=== PATIENT | male | born 1945 | race Caucasian/White ===

== ENCOUNTER → 2020-11-27 19:55 | Outpatient (CLI) | payer MEDICARE, SELFPAY | PROVIDERS: Visit Provider Nurse Practitioner Family | DX: Z20.822 Contact with and (suspected) exposure to COVID-19 (principal) | CPT/HCPCS: C9803; U0003; U0005 ==

== ENCOUNTER 2024-11-17 08:51 | Outpatient (CLI) | payer MEDICARE, SELFPAY ==
--- OUTSIDE RECORDS SUMMARY | 2023-06-02 05:30 | XMS_ITS ---
Author Organization [facility] Address [address] [place] [id number] Care Team Providers Care Primer Inspector Name Role Phone Melissa Obrien Primary Care Provider [phone] Allergies Allergen (clinical drug ingredient) Drug/Non Drug Allergy documented on EMR Reaction Allergy Type Onset Date Status Substance with sulfonamide structure and antibacterial mechanism of action (substance) Sulfa Antibiotics hives Drug Allergy Active Results Component Value Reference Range Notes P-Comprehensive Metabolic Pa tim (CMP) Reviewed date:06/08/2023 09:31:53 PM Interpretation: Performing Lab: Notes/Report: Test performed by [facility] [address] [place] [address] , [address], [place] [address] Nile Thornton MD, Replenishment Associate CLIA: [id number] Sodium 140 135-145 mEq/L Potassium 4.4 3.5-5.3 mEq/L Chloride 104 97-108 mEq/L CO2 24 22-32 mEq/L Glucose 100 65-99 mg/dL BUN 22 8-23 mg/dL Creatinine 0.87 0.70-1.30 mg/dL Calcium 9.9 8.6-10.4 mg/dL eGFR by Creatinine 90 >59 mL/min/1.73m2 Protein 7.3 6.0-8.3 g/dL Albumin 4.6 3.5-5.3 g/dL Alkaline Phosphatase 69 40-129 IU/L ALT (SGPT) 27 <5-55 IU/L AST (SGOT) 31 <5-46 IU/L Bilirubin, Total 0.6 <0.2-1.2 mg/dL A/G Ratio 1.7 1.1-2.5 mg/dL P-Lipid Panel Reviewed date:06/08/2023 09:31:53 PM Interpretation: Performing Lab: Notes/Report: Test performed by [facility] [facility] [address], [place] [address] Nile Thornton MD, Replenishment Associate CLIA: [id number] Cholesterol 216 <200 mg/dL Triglycerides 92 <150 mg/dL HDL Cholesterol 51 >39 mg/dL Cholesterol / HDL Ratio 4.24 0.00-4.99 Ratio Non-HDL Cholesterol 165 <130 mg/dL LDL Cholesterol (Calculation) 147 <130 mg/dL LDL Cholesterol Levels* Less than 100 mg/dL Optimal 100 to 129 mg/dL Near Optimal/ Above Optimal 130 to 159 mg/dL Borderline High 160 to 189 mg/dL High 190 mg/dL and above Very High * Categories as recommended by the 2004 ATPIII guidelines LDL/HDL Ratio 2.9 <3.3 Ratio LDL Cholesterol Patient History Test Date: 06/02/2023 LDL Results: 147 Units: mg/dL % Change: - P-PSA Reviewed date:06/08/2023 09:32:15 PM Interpretation:6.29 Performing Lab: Notes/Report: Test performed by [facility] [address] [place] [address] Nile Thornton MD, Replenishment Associate CLIA: [id number] PSA 6.29 <4.00 ng/mL Please note this is an ultrasensitive PSA assay with a lower limit of detection of 0.014 ng/mL. This test is performed by the Jono ECLIA methodology. Values obtained with different assay methods or kits cannot be directly compared. REASON FOR VISIT post nasal drainage Medications Medication SIG (Take, Route, Frequency, Duration) Notes Start Date End Date Status FLUoxetine HCl 20 MG 1 tablet Orally Onc e a day; Duration: 30 day(s) 06/12/2023 Active Lisinopril-hydroCHLOROthia zide 20-25 MG 1 tablet Orally Once a day; Duration: 90 days Active Aspirin 325 MG 1 tab(s) orally once a day Active Turmeric 500MG ONCE DAILY Acti ve Problems Problem Type SNOMED Code ICD Code Onset Dates Problem Status W/U Status Risk Notes Problem Depression (382311229) Depression (F32.9) Active confirmed Problem Elevated PSA (651212269) Elevated PSA (R97.20) Active confirmed Vital Signs Weight 273.8 lbs 06/02/2023 Blood pressure systolic 142 mm Hg 06/02/19 24 Blood pressure diastolic 110 mm Hg 024 Heart Rate 96 /min 06/02/2023 Height 74 in 06/02/2023 BMI 35.15 kg/m2 06/02/2023 Encounters [facility]counter [facility] Date [facility] [address] [phone] 06/02/2023 Melissa Obrien HTN (hypertension) I 10 ; Dyslipidemia E78.5 ; Elevated PSA R97.2 ; Depression F32.9 ; Elevated PSA R97.20 and Rhinitis J31.0 Assessments Encounter Date Diagnosis (ICD Code) Assessment Notes Treatment Notes Treatment Clinical Notes Section Notes 06/02/2023 HTN (hypertension) (ICD-10 - I10) 06/02/2023 Dyslipidemia (ICD-10 - E78.5) Reinforced diet. Recheck labs. 06/02/2023 Elevated PSA (ICD-10 - R97.2) 06/02/2023 Depression (ICD-10 - F32.9) 06/02/2023 Elevated PSA (ICD-10 - R97.20) 06/02/2023 Rhinitis (ICD-10 - J31.0) Recommend OTC antihistamine of choice Plan Of Treatment Medication Medication Name Sig Start Date Stop Date Notes FLUoxetine HCl 20 MG 1 tablet Orally Onc e a day; Duration: 30 day(s) 06/12/2023 Lisinopril-hydroCHLOROthiazi de 20-25 MG 1 tablet Orally Once a day; Duration: 90 days Treatment Notes Assessment Notes Dyslipidemia Reinforced diet. Rec heck labs. Rhinitis Recommend OTC antihi stamine of choice Next Appt Details Follow Up: 6 Months, Reason: Progress Notes * PEACE RUSSELLDOB:1945 ( 79 yo M)Acc No.[id number]:06/02/2023 Progress Notes Patient: PEACE BARBOZA Provider: Melissa Obrien M.D. :1945 A ge:77 Y S ex:Male Date:06/02/2023 Address:[address] [place] [address] [place], [id number] Subjective: * Chief Complaints: * 1 . Post nasal drainage. * HPI: E NT/respiratory: He presents with complaints of chronic nasal congestion postnasal drainage that has been present throughout the winter months. No associated fever. Drainage is mostly clear in color. He tried taking Mucinex with no improvement. He has had some associated cough. No shortness of breath. No pleuritic chest pain. E ndocrinology: Maintenance P t is fasting today and would like to have labs done while in the office to check his cholesterol as well as his PSA. P sychology: He has been under increased stress over the past several months. He has an adult daughter living at home which has been somewhat disruptive to the usual routine. He admits to being grouchy with his family and finds himself withdrawing to his room to be alone and away from the family. M kari Reproductive: He is also here to follow-up on elevated PSA. He still has nocturia at least once per night but is not bothersome. He has a history of elevated PSA in the past and had a prostate biopsy greater than 10 years ago which was negative. C ardiology: He has had some intermittent elevated blood pressure readings at home. Denies : Chest Pain. D enies : Short of Breath. D enies : Leg Edema. * ROS: D ERMATOLOGY: no R camacho. n o H diana. G ASTROENTEROLOGY: no N ausea. n o V omiting. U ROLOGY: no D ifficulty urinating. n o B lood in urine. * Medical History: H ypertension, Enlarged Prostate, Elevated PSA with benign biopsy, Presbycusis - wears hearing aids, HLP, OA, Peripheral neuropathy, Hydrocele. * Surgical History: L T Inguinal Hernia Repair 2008, Tonsillectomy , Colonoscopy, 2017 normal , Prostate biopsy - benign x 2/ [place] , LT Cataract Removal 04/2019. * Family History: F ather: 73 yrs, massive heart attack. M other: 94 yrs. 1 daughter(s) . . * Social History: C URRENT TOBACCO USE S moking Status: Patient does smoke, packs per day: 0, number of cigarettes per day: 3, Since age of: 20, Smoking preference: cigars. C affeine: yes, coffee. 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 Home smoke detector use: yes. Occupation: Audiovisual design and installation. Alcohol: occasional. * Medications: T aking Turmeric 500MG ONCE DAILY , Taking Aspirin 325 MG Tablet 1 tab(s) orally once a day , Taking Lisinopril-hydroCHLOROthiazide 20-12.5 MG Tablet 1 tablet Orally Once a day , Medication List reviewed and reconciled with the patient * Allergies: S ulfa Antibiotics: hives. Objective: * Vitals: W t:273.8, Temp:97.8, BP:142/110, HR:96, O2 Sat:98% on RA, Nurse:NIA, Ht: 74, Repeat BP:134/100, BMI:35.15. * Examination: E NT/Respiratory: General Appearance: N AD. Hard of hearing. E ars:?Bilateral hearing aids. Canals with small amount of wax. TMs are unremarkable..?Nose : mild congestion. S inuses : non tender bilaterally. O ral cavity : no erythema or exudate seen on pharynx. H eart : R RR, normal S1 S2, no murmurs. L ungs: c lear to auscultation bilaterally. E xtremities : no edema. Assessment: * Assessment: 1. H TN (hypertension) - I10 (Primary) 2 . D yslipidemia - E78.5 3 . E levated PSA - R97.2 4 . D epression - F32.9 5 .?Elevated PSA - R97.20 6 . R hinitis - J31.0 Plan: * Treatment: Value Reference Range A /G Ratio 1.7 1.1-2.5 - mg/dL * A lbumin 4.6 3.5-5.3 - g/dL * A lkaline Phosphatase 69 40-129 - IU/L * A LT (SGPT) 27 <5-55 - IU/L * A ST (SGOT) 31 <5-46 - IU/L * B ilirubin, Total 0.6 <0.2-1.2 - mg/dL * B UN 22 8-23 - mg/dL * C alcium 9.9 8.6-10.4 - mg/dL * C hloride 104 97-108 - mEq/L * C O2 24 22-32 - mEq/L * C reatinine 0.87 0.70-1.30 - mg/dL * G lucose 100 H 65-99 - mg/dL * P otassium 4.4 3.5-5.3 - mEq/L * S odium 140 135-145 - mEq/L * P rotein 7.3 6.0-8.3 - g/dL * e GFR by Creatinine 90 >59 - mL/min/1.73m2 * Melissa Obrien 06/08/2023 9 :31:24 PM >See phone encounter 2.?Dyslipidemia?LAB: P-Lipid Panel (Collection Date & Time - 06/02/2023 09:15 AM)* Value Reference Range C holesterol / HDL Ratio 4.24 0.00-4.99 - Ratio * C holesterol 216 H <200 - mg/dL * H DL Cholesterol 51 >39 - mg/dL * L DL Cholesterol (Calculation) 147 H <130 - mg/d L * L DL/HDL Ratio 2.9 <3.3 - Ratio * N on-HDL Cholesterol 165 H <130 - mg/dL * T riglycerides 92 <150 - mg/dL * Melissa Obrien 06/08/2023 9 :31:24 PM >See phone encounter Notes: Reinforced diet. Recheck labs.??3.?Depression? Start FLUoxetine HCl Tablet, 20 MG, 1 tablet, Orally, Once a day, 30 day(s), 30, Refills 5.? 4.?Elevated PSA?LAB: P-PSA (Collection Date & Time - 06/02/2023 09:15 AM)?6.29* Value Reference Range P SA 6.29 H <4.00 - ng/mL * Melissa Obrien 06/08/2023 9 :32:07 PM > See phone encounter 5.?Rhinitis? Notes: Recommend OTC antihistamine of choice?? * Procedure Codes: 9 4760 PULSE OX, G2211 Complex e/m visit add on * Follow Up: 6 Months * Images: Billing Information: * Visit Code: 10998 Office Visit, Est Pt., Level 4. * Procedure Codes: 32041 PULSE OX. G2211 Complex e/m visit add on. * Electronic signature of Melissa Obrien MD on 11/17/2024 at 08:55 AM EDT Sign off status: Pending * Provider: Melissa Obrien M.D. Date: 0 06/02/2023 Generated for Deshauni ng/Fatomig/eTransmitting on: 0 11/17/2024 08:55 AM EDT History and Physical Notes * HPI (History of Present Illness) Category Sub-Category Detail Notes Category Not es Endocrinology Maintenance Pt is fasting to day and would like to have labs done while in the office to check his cholesterol as well as his PSA Cardiology Short of Breath Chest Pain Leg Edema Examination Category Sub-Category Detail Notes Category Not es ENT/Respiratory Oral cavity : no erythema or exudate s een on pharynx Sinuses : non tender bilateral ly Ears: Bilateral hearing ai ds. Canals with small amount of wax. TMs are unremarkable. Heart : RRR, normal S1 S2, n o murmurs Lungs: clear to auscultatio n bilaterally Extremities : no edema General Appearance: NAD. Hard of hearing Nose : mild congestion
--- OUTSIDE RECORDS SUMMARY | 2024-01-21 06:00 | XMS_ITS ---
Author Organization [facility] Address [address] [facility] [address] [place] [id number] Care Team Providers Care Consumer Loan Specialist Name Role Phone Melissa Obrien Primary Care Provider [phone] Allergies Allergen (clinical drug ingredient) Drug/Non Drug Allergy documented on EMR Reaction Allergy Type Onset Date Status Substance with sulfonamide structure and antibacterial mechanism of action (substance) Sulfa Antibiotics hives Drug Allergy Active Results Component Value Reference Range Notes Glycohemoglobin A1c (in hous e) Reviewed date:01/25/2024 09:41:33 AM Interpretation:5.7% Performing Lab: Notes/Report: 5.7% glycohemoglobin 5.7% 5 - 6.5 % P-Comprehensive Metabolic Pa tim (CMP) Reviewed date:01/25/2024 09:41:33 AM Interpretation: Performing Lab: Notes/Report: Test performed by [employer] [address] [place] [address] , [address], [place] [address] Nile Thornton MD, Lead Refinery Supervisor CLIA: [id number] Sodium 139 135-145 mmol/L Potassium 4.9 3.5-5.3 mmol/L Chloride 100 97-108 mmol/L CO2 27 22-32 mmol/L Glucose 96 65-99 mg/dL BUN 28 8-23 mg/dL Creatinine 1.02 0.70-1.30 mg/dL Calcium 10.1 8.6-10.4 mg/dL eGFR by Creatinine 76 >59 mL/min/1.73m2 Protein 7.6 6.0-8.3 g/dL Albumin 4.4 3.5-5.3 g/dL Alkaline Phosphatase 77 40-129 IU/L ALT (SGPT) 22 <5-55 IU/L AST (SGOT) 25 <5-46 IU/L Bilirubin, Total 0.6 <0.2-1.2 mg/dL A/G Ratio 1.4 1.1-2.5 P-PSA Reviewed date:01/25/2024 09:41:33 AM Interpretation: Performing Lab: Notes/Report: Test performed by [employer] [address] [place] [address] , [place] [address] Nile Thornton MD, Lead Refinery Supervisor CLIA: [id number] PSA 8.73 <4.00 ng/mL Please note this is an ultrasensitive PSA assay with a lower limit of detection of 0.014 ng/mL. This test is performed by the [employer] ECLIA methodology. Values obtained with different assay methods or kits cannot be directly compared. P-Microalbumin/Creatinine, R andom Urine Sample Reviewed date:01/25/2024 09:41:33 AM Interpretation: Performing Lab: Notes/Report: Test performed by [employer] [facility] [address] [place] [address] , [address], [place] [address] Nile Thornton MD, Lead Refinery Supervisor CLIA: [id number] Albumin/Creatinine Ratio, Urine 5 0-30 ug/m g Microalbumin, Urine, Random 0.9 Creatinine, Urine 192.7 REASON FOR VISIT Yearly checkup with [employer] Annual Wellness Visit Medications Medication SIG (Take, Route, Frequency, Duration) Notes Start Date End Date Status Lisinopril-hydroCHLOROthiaz jennifer 20-25 MG 1 tablet Orally Once a day; Duration: 90 days Active metroNIDAZOLE 0.75 % 1 application Exter kathy Twice a day 01/21/2024 Active FLUoxetine HCl 40 MG 1 capsule Orally On ce a day; Duration: 30 day(s) 01/21/2024 Active Turmeric 500MG ONCE DAILY Acti ve Aspirin 325 MG 1 tab(s) orally once a day Active Immunizations Vaccine Route Administration Date Status Comme nts Prevnar (PCV20) IM Intramuscular 01/21/2024 Administered Problems Problem Type SNOMED Code ICD Code Onset Dates Problem Status W/U Status Risk Notes Problem Obese class II ([id number]) BMI 35.0-35.9,a dult (Z68.35) Active confirmed Vital Signs Weight 276.8 lbs 01/21/2024 Blood pressure systolic 138 mm Hg 01/21/20 24 Blood pressure diastolic 82 mm Hg 024 Heart Rate 94 /min 01/21/2024 Height 74 in 01/21/2024 BMI 35.54 kg/m2 01/21/2024 Encounters Encounter Location Date Provider Diagnosis Samantha [address] [facility] [address] [place] [id number] 01/21/2024 Melissa Obrien Adult general medica l examination Z00.00 ; HTN (hypertension) I10 ; Dyslipidemia E78.5 ; Depression F32.9 ; Elevated PSA R97.20 ; Low back pain, unspecified M54.50 ; BPH (benign prostatic hyperplasia) N40.0 ; Osteoarthritis M19.90 ; Presbycusis of both ears H91.13 and BMI 35.0-35.9,adult Z68.35 Assessments Encounter Date Diagnosis (ICD Code) Assessment Notes Treatment Notes Treatment Clinical Notes Section Notes 01/21/2024 Adult general medical examination (ICD-10 - Z00.00) Patient instructed to return to office Annually for Annual Wellness Visits to include annual screenings of Pain assessment, Functional Ability assessment, Cognitive Ability assessment, Fall Risk assessment, Depression screening and Bladder control screening. 01/21/2024 HTN (hypertension) (ICD-10 - I10) 01/21/2024 Dyslipidemia (ICD-10 - E78.5) Reinforced diet. Recheck labs. 01/21/2024 Depression (ICD-10 - F32.9) 01/21/2024 Elevated PSA (ICD-10 - R97.20) 01/21/2024 Low back pain, unspecified (ICD-10 - M54.50) Discussed likely etiology of low back pain being related to DJD/DDD of lumbar spine. Discussed treatment options including ongoing conservative measures versus additional imaging, physical therapy, and/or pain management referral. For now he would like to continue on anti-inflammator ies. I recommend switching to Aleve with its longer half-life. Encouraged increased physical activity, weight loss, and regular stretching routine at home. 01/21/2024 BPH (benign prostatic hyperplasia) (ICD-10 - N40.0) 01/21/2024 Osteoarthritis (ICD-10 - M19.90) 01/21/2024 Presbycusis of both ears (ICD-10 - H91.13) 01/21/2024 BMI 35.0-35.9,adult (ICD-10 - Z68.35) Plan Of Treatment Medication Medication Name Sig Start Date Stop Date Notes Lisinopril-hydroCHLOROthiazi de 20-25 MG 1 tablet Orally Once a day; Duration: 90 days metroNIDAZOLE 0.75 % 1 application Exter kathy Twice a day 01/21/2024 FLUoxetine HCl 40 MG 1 capsule Orally On ce a day; Duration: 30 day(s) 01/21/2024 FLUoxetine HCl 20 MG 1 tablet Orally Once a day Treatment Notes Assessment Notes Adult general medical examination Patien t instructed to return to office Annually for Annual Wellness Visits to include annual screenings of Pain assessment, Functional Ability assessment, Cognitive Ability assessment, Fall Risk assessment, Depression screening and Bladder control screening. Dyslipidemia Reinforced diet. Rec heck labs. Low back pain, unspecified Discussed lik renita etiology of low back pain being related to DJD/DDD of lumbar spine. Discussed treatment options including ongoing conservative measures versus additional imaging, physical therapy, and/or pain management referral. For now he would like to continue on anti-inflammatories. I recommend switching to Aleve with its longer half-life. Encouraged increased physical activity, weight loss, and regular stretching routine at home. Next Appt Details Follow Up: 6 Months, Reason: Progress Notes * DREW PEACEDOB:1945 ( 79 yo M)Acc No.[id number]:01/21/2024 Annual Wellness Visit Patient: PEACE BARBOZA Provider: Melissa Obrien M.D. :1945 A ge:78 Y S ex:Male Date:01/21/2024 Address:[address] [place], [place] [address], [id number] Subjective: * Chief Complaints: * 1 . Yearly checkup with [facility] Annual Wellness Visit. * HPI: H PI: Patient is here today for a scheduled yearly c heck up and a [employer] Annual Wellness Visit with PAF form completion. See PAF form scanned to chart. Pt is fasting today. P sychology: depression P t sts that he did not feel that the Fluoxetine was helping so he q uit taking it. P t sts that a lot of his depression issues have to do with his adult daughter that is living at home with him. L ower back: Low Back Pain P t sts that he has been having chronic lower back pain described as a dull ache across the waistline. He usually takes Advil every morning which helps but sts that as the day goes on his pain does worsen and feels the need to sit down and stretch his back out. Pt sts that he occassionally has to add 650 mg of Acetaminophen and that helps. Pt sts that he uses an exercise bike and stretches in the mornings. He only rides his bike for about 5 minutes 3 times a day. Pt sts that he had a leg injury in [id number] and sts that he is having some leg weakness. C ardiology: Blood pressure checks at home have been consistently normal since increasing his lisinopril dose at last visit. * ROS: D ERMATOLOGY: no R camacho. [...] , Prostate biopsy - benign x 2/ [place] , LT Cataract Removal 04/2019. * Family [...] orally once a day , Taking Lisinopril-hydroCHLOROthiazide 20-25 MG Tablet 1 tablet Orally Once a day , Taking FLUoxetine HCl 20 MG Tablet 1 tablet Orally Once a day , Medication List reviewed and reconciled with the patient * Allergies: S ulfa Antibiotics: hives. Objective: * Vitals: W t:276.8, Temp:97.8, BP:138/82, HR:94, O2 Sat:98% on RA, Nurse:NIA, Ht: 74, BMI:35.54. * Examination: E NT/Respiratory: General Appearance: N [...] auscultation bilaterally. E xtremities : no edema. G eneral Examination: Back: H e moves slowly on the exam table with apparent pain and stiffness in the lower back. There is decrease in the normal lumbar lordosis. No bony tenderness of the lumbar spine. Range of motion is decreased.. * Physical Examination: G ENERAL: Pain Assessment: P ain level: 4, on a scale of 0-10 (with 10 being extreme pain). F unctional Status Assessment: P atient response to question of how often physical health interferes with daily activities: . Almost never Able to perform ADLs-including meal preparation, grocery shopping, housework, laundry, taking medications or handling finances. Cognitive Status: alert and oriented. Ambulation Status: Fully ambulatory . F all Risk Assessment: I ndependant in ambulation, adequate lighting in home. Patient has NOT fallen or had trouble walking within the past 12 months. D epression Screening: D enies depressed mood or anxiety. Describes emotional health as: downhearted. B ladder Control Screening: D enies problems. Assessment: * Assessment: 1. A dult general medical examination - Z00.00 (Primary) 2 . H TN (hypertension) - I10 3 . D yslipidemia - E78.5 4 . D epression - F32.9 5 . E levated PSA - R97.20 6 . L ow back pain, unspecified - M54.50 7 . B PH (benign prostatic hyperplasia) - N40.0 8 .?Osteoarthritis - M19.90 9 . P resbycusis of both ears - H91.13 ?10. B DC 35.0-35.9,adult - Z68.35 Plan: * Treatment: Value Reference Range g lycohemoglobin 5.7% 5 - 6.5 % * Mitzy Ferrari 01/21/2024 12:2 6:40 PM > Melissa Obrien 01/25/2024 9:41:21 AM >See phone encounter Notes:Patient instructed to return to office Annually for Annual Wellness Visits to include annual screenings of Pain assessment, Functional Ability assessment, Cognitive Ability assessment, Fall Risk assessment, Depression screening and Bladder control screening.??2.?HTN (hypertension)? Refill Lisinopril-hydroCHLOROthiazide Tablet, 20-25 MG, 1 tablet, Orally, Once a day, 90 days, 90 Tablet, Refills 1.?LAB: P-Comprehensive Metabolic Panel (CMP) (Collection Date & Time - 01/21/2024 09:45 AM)* Value Reference Range A /G Ratio 1.4 1.1-2.5 - * A lbumin 4.4 3.5-5.3 - g/dL * A lkaline Phosphatase 77 40-129 - IU/L * A LT (SGPT) 22 <5-55 - IU/L * A ST (SGOT) 25 <5-46 - IU/L * B ilirubin, Total 0.6 <0.2-1.2 - mg/dL * B UN 28 H 8-23 - mg/dL * C alcium 10.1 8.6-10.4 - mg/dL * C hloride 100 97-108 - mmol/L * C O2 27 22-32 - mmol/L * C reatinine 1.02 0.70-1.30 - mg/dL * G lucose 96 65-99 - mg/dL * P otassium 4.9 3.5-5.3 - mmol/L * S odium 139 135-145 - mmol/L * P rotein 7.6 6.0-8.3 - g/dL * e GFR by Creatinine 76 >59 - mL/min/1.73m2 * Melissa Obrien 01/25/2024 9:41:21 AM >See phone encounter ?LAB: P-Microalbumin/Creatinine, Random Urine Sample (Collection Date & Time - 01/21/2024 09:45 AM)* Value Reference Range A lbumin/Creatinine Ratio, Urine 5 0-30 - ug /mg * C reatinine, Urine 192.7 - mg/dL * M icroalbumin, Urine, Random 0.9 - mg/dL * Melissa Obrien 01/25/2024 9:41:21 AM >See phone encounter 3.?Dyslipidemia? Notes: Reinforced diet. Recheck labs.??4.?Depression? Stop FLUoxetine HCl Tablet, 20 MG, 1 tablet, Orally, Once a day;?Start FLUoxetine HCl Capsule,40 MG, 1 capsule, Orally, Once a day, 30 day(s), 30, Refills 5.??5.?Elevated PSA?LAB: P-PSA (Collection Date & Time - 01/21/2024 09:45 AM)* Value Reference Range P SA 8.73 H <4.00 - ng/mL * Melissa Obrien 01/25/2024 9:41:21 AM >See phone encounter 6.?Low back pain, unspecified? Notes: Discussed likely etiology of low back pain being related to DJD/DDD of lumbar spine. Discussed treatment options including ongoing conservative measures versus additional imaging, physical therapy, and/or pain management referral. For now he would like to continue on anti-inflammatories. I recommend switching to Aleve with its longer half-life. Encouraged increased physical activity, weight loss, and regular stretching routine at home.??7.?Others? Start metroNIDAZOLE Cream, 0.75 %, 1 application, Externally, Twice a day, 30 gm.?? * Immunizations: Prevnar (PCV20) : 0.5 mL (Route: Intramuscular) given by Mitzy Ferrari on Right Deltoid (Adult general medical examination) * Procedure Codes: G 0439 ANNUAL WELLNESS VST; PPS SUBSQT VST, 48293 PT-FOCUSED HLTH RISK ASSMT, 29900 GLYCATED HEMOGLOBIN TEST, Modifiers: QW , G0444 ANNUAL DEPRESSION SCREENING 15 MIN, 1090F PRES/ABSN URINE INCON ASSESS, 3288F FALL RISK ASSESSMENT DOCD, 1170F FXNL STATUS ASSESSED, 1159F MED LIST DOCD IN RCRD, 1003F LEVEL OF ACTIVITY ASSESS, 3017F COLORECTAL CA SCREEN DOC REV, O8186 FLU IMMUNIZE ORDER/ADMIN, 4040F PNEUMOC IMM ORDER/ADMIN, G8431 CLIN DEPRESSION SCREEN DOC positive, Modifiers: U8 , 3044F HG A1C LEVEL LT 7.0%, 1125F AMNT PAIN NOTED PAIN PRSNT, 3075F SYST BP GE 130 - 139MM HG, 3079F DIAST BP 80-89 MM HG, G8950 PREHTN/HTN BP DOC INDCD F/U DOC * Preventive Medicine: Counseling: E motional health: D iscussed ways to improve socialization. E xercise: P atient advised to start, increase or maintain level of exercise/physical activity. Injury prevention: F all prevention discussed. Discussed need for cane/walker. Potential trip hazards discussed. Immunizations: P neumococcal r ecommended. I nfluenza u p to date. Screening / Special Tests: C olonoscopy C olonoscopy last perfomed 12/25/2016 was to be repeated in 2 years. 12/02/2022 patient stated he would contact Dr. Silveira's office to schedule. No record testing was completed. recommended today. P SA elevated PSA of 6.29, which was lower than previous, continue to monitor. * Follow Up: 6 Months * Images: Billing Information: * Visit Code: 58467 Office Visit, Est Pt., Level 3. Modifiers: 25 * Procedure Codes: G0439 ANNUAL WELLNESS VST; PPS SUBSQT VST. 80665 PT-FOCUSED HLTH RISK ASSMT. 88167 GLYCATED HEMOGLOBIN TEST. Modifiers: QW G0444 ANNUAL DEPRESSION SCREENING 15 MIN. 1090F PRES/ABSN URINE INCON ASSESS. 3288F FALL RISK ASSESSMENT DOCD. 1170F FXNL STATUS ASSESSED. 1159F MED LIST DOCD IN RCRD. 1003F LEVEL OF ACTIVITY ASSESS. 3017F COLORECTAL CA SCREEN DOC REV. G8482 FLU IMMUNIZE ORDER/ADMIN. 4040F PNEUMOC IMM ORDER/ADMIN. G8431 CLIN DEPRESSION SCREEN DOC positive. Modifiers: U8 3044F HG A1C LEVEL LT 7.0%. 1125F AMNT PAIN NOTED PAIN PRSNT. 3075F SYST BP GE 130 - 139MM HG. 3079F DIAST BP 80-89 MM HG. G8950 PREHTN/HTN BP DOC INDCD F/U DOC. * Electronic signature of R He nry Micah , MD on 11/17/2024 at 08:55 AM EDT Sign off status: Pending * Provider: Melissa Obrien M.D. Date: 03/22/2023 Generated for Zander parkinson/Pj/Catalinasmitting on: 0 11/17/2024 08:55 AM EDT History and Physical Notes * HPI (History of Present Illness) Category Sub-Category Detail Notes Category Not es Lower back Low Back Pain Pt sts that he h as been having chronic lower back pain described as a dull ache across the waistline. He usually takes Advil every morning which helps but sts that as the day goes on his pain does worsen and feels the need to sit down and stretch his back out. Pt sts that he occassionally has to add 650 mg of Acetaminophen and that helps. Pt sts that he uses an exercise bike and stretches in the mornings. He only rides his bike for about 5 minutes 3 times a day. Pt sts that he had a leg injury in 1720-1147 and sts that he is having some leg weakness Psychology depression Pt sts that he d id not feel that the Fluoxetine was helping so he quit taking it. Pt sts that a lot of his depression issues have to do with his adult daughter that is living at home with him HPI Patient is here today for a [facility] yearly check up and a [employer] Annual Wellness Visit with PAF form completion. See PAF form scanned to chart. Pt is fasting today Physical Examination Category Sub-Category Detail Notes Section Note s GENERAL Pain Assessment: Pain level: 4, on a scale of 0-10 (with 10 being extreme pain) Functional Status Assessment: Patient response to question of how often physical health interferes with daily activities: . Almost never Able to perform ADLs-including meal preparation, grocery shopping, housework, laundry, taking medications or handling finances. Cognitive Status: alert and oriented. Ambulation Status: Fully ambulatory Fall Risk Assessment: Independant in amb ulation, adequate lighting in home. Patient has NOT fallen or had trouble walking within the past 12 months Depression Screening: Denies depressed m ood or anxiety. Describes emotional health as: downhearted Bladder Control Screening: Denies proble ms Examination Category Sub-Category Detail Notes Category Not [...] Hard of hearing Nose : mild congestion General Examination Back: He moves slo wly on the exam table with apparent pain and stiffness in the lower back. There is decrease in the normal lumbar lordosis. No bony tenderness of the lumbar spine. Range of motion is decreased.
--- OUTSIDE RECORDS SUMMARY | 2024-10-27 06:45 | XMS_ITS ---
Author Organization [facility] Address [facility] [facility] [address] [place] [phone] Care Team Providers Care Cotton Farmworker Name Role Phone Melissa Obrien Primary Care Provider [phone] Allergies Allergen (clinical drug ingredient) Drug/Non Drug Allergy documented on EMR Reaction Allergy Type Onset Date Status Substance with sulfonamide structure and antibacterial mechanism of action (substance) Sulfa Antibiotics hives Drug Allergy Active REASON FOR VISIT rash on ankles Medications Medication SIG (Take, Route, Frequency, Duration) Notes Start Date End Date Status Silodosin 4 MG 1 capsule Orally Onc a day 10/27/2024 Active Lisinopril-hydroCHLOROthi azide 20-25 MG 1 tablet Orally Once a day Active metroNIDAZOLE 0.75 % 1 application Externally Twice a day 01/21/2024 Active Turmeric 500MG ONCE DAILY Acti ve FLUoxetine HCl 40 MG 1 capsule Orally On a day; Duration: 30 day(s) 01/21/2024 Not-Taking Aspirin 325 MG 1 tab(s) orally once a day Active Betamethasone Dipropionate Aug 0.05 % 1 application Externally twice a day 10/27/2024 Active Problems Problem Type SNOMED Code ICD Code Onset Dates Problem Status W/U Status Risk Notes Problem Spinal stenosis of lumbar region (59091073) Spinal stenosis of lumbar region at multiple levels (M48.061) Active confirmed Vital Signs Weight 278 lbs 10/27/2024 Blood pressure systolic 130 mm Hg 10/28/19 25 Blood pressure diastolic 90 mm Hg 025 Heart Rate 96 /min 10/27/2024 Height 74 in 10/27/2024 BMI 35.69 kg/m2 10/27/2024 Encounters Encounter Location Date Provider Diagnosis Samantha [address] [place] [phone] 10/27/2024 Melissa Obrien Eczema L30.9 ; HTN (hypertension) I10 ; BPH (benign prostatic hyperplasia) N40.0 ; Spinal stenosis of lumbar region at multiple levels M48.061 ; Leg weakness, bilateral M62.81 ; Dyslipidemia E78.5 ; Lumbar back pain M54.50 and BMI 35.0-35.9,adult Z68.35 Assessments Encounter Date Diagnosis (ICD Code) Assessment Notes Treatment Notes Treatment Clinical Notes Section Notes 10/27/2024 Eczema (ICD-10 - L30.9) 10/27/2024 HTN (hypertension) (ICD-10 - I10) 10/27/2024 BPH (benign prostatic hyperplasia) (ICD-10 - N40.0) 10/27/2024 Spinal stenosis of lumbar region at multiple levels (ICD-10 - M48.061) 10/27/2024 Leg weakness, bilateral (ICD-10 - M62.81) 10/27/2024 Dyslipidemia (ICD-10 - E78.5) 10/27/2024 Lumbar back pain (ICD-10 - M54.50) 10/27/2024 BMI 35.0-35.9,adult (ICD-10 - Z68.35) Plan Of Treatment Medication Medication Name Sig Start Date Stop Date Notes Silodosin 4 MG 1 capsule Orally Once a day 10/27/2024 Lisinopril-hydroCHLOROthiazi de 20-25 MG 1 tablet Orally Once a day Betamethasone Dipropionate A ug 0.05 % 1 application Externally twice a day 10/27/2024 Pending Test Test Name Order Date MRI : Spine, Lumbosacral, without contra st 10/27/2024 Next Appt Details Follow Up: via phone to repo rt test results, Reason: Progress Notes * PEACE RUSSELLDOB:1945 ( 79 yo M)Acc No.[id number]:10/27/2024 Progress Notes Patient: PEACE BARBOZA Provider: Melissa Obrien M.D. :1945 A ge:79 Y S ex:Male Date:10/27/2024 Address:[address] [place], [place] [id number] Subjective: * Chief Complaints: * 1 . Rash on ankles. * HPI: D ermatology: 79 year old male presents with c/o rash O n his right ankle for about 2 months. It started as a small area which has gotten larger. It is dry, scaly, and pruritic. He has tried using Neosporin, Vaseline, and metronidazole cream with no improvement.. N eurology: His other complaint today is worsening low back pain which he feels is causing some weakness in both his legs. And he has ongoing numbness in both feet. The back pain and leg weakness are beginning to limit his activities. M kari Reproductive: He has a longstanding history of BPH but symptoms are now becoming bothersome with frequent nocturnal awakenings and he would like to try medication. He is requesting a trial of Rapaflo. * ROS: D ERMATOLOGY: no R camacho. [...] , Prostate biopsy - benign x 2/ Emblem , LT Cataract Removal 04/2019. * Family [...] tab(s) orally once a day , Taking metroNIDAZOLE 0.75 % Cream 1 application Externally Twice a day , Taking Lisinopril-hydroCHLOROthiazide 20-25 MG Tablet 1 tablet Orally Once a day , Not-Taking FLUoxetine HCl 40 MG Capsule 1 capsule Orally Once a day , Medication List reviewed and reconciled with the patient * Allergies: S ulfa Antibiotics: hives. Objective: * Vitals: W t: 278, Temp: 97.7, BP: 130/90, HR: 96, O2 Sat: 100% on RA, Nurse: ángel, Ht: 74, BMI:35.69. * Examination: G eneral Examination: Skin: O n the right ankle, there is a 6 x 7 cm well-circumscribed macular area dry, scaly, and cracked skin. No excoriation or drainage.. B ack: T here is marked decrease in the normal lumbar lordosis with limited range of motion of the lumbar spine. He has difficulty standing erect.. E xtremities: T here is slight weakness in dorsiflexion of the right ankle.. Assessment: * Assessment: 1. E czema - L30.9 (Primary) 2 . H TN (hypertension) - I10 3 . B PH (benign prostatic hyperplasia) - N40.0 4 . S dora stenosis of lumbar region at multiple levels - M48.061 5 . L eg weakness, bilateral - M62.81 6. D yslipidemia - E78.5 7 . L umbar back pain - M54.50 ? 8 . B IA 35.0-35.9,adult - Z68.35 Plan: * Treatment: 2. B PH (benign prostatic hyperplasia) Start Silodosin Capsule, 4 MG, 1 capsule, Orally, Once a day, 90, Refills 1. 3. S dora stenosis of lumbar region at multiple levels I maging: MRI : Spine, Lumbosacral, without contrast 4.?Leg weakness, bilateral?Imaging: MRI : Spine, Lumbosacral, without contrast* Crissy Alfaro 10/31/2024 10:0 0:43 AM EDT > auth#[id number]; valid 10/31/2024-12/28/2024; CPT code 99225; faxed to [facility] Scheduling 5.?Others? Refill Lisinopril-hydroCHLOROthiazide Tablet, 20-25 MG, 1 tablet, Orally, Once a day, 90, Refills 1.?? * Procedure Codes: G 2211 Complex e/m visit add on, G8950 PREHTN/HTN BP DOC INDCD F/U DOC, G8752 MOST RECENT SYSTOLIC BP < 140MM HG, G8755 MOST RECENT DIASTOLIC BP >= 90MM HG * Follow Up: v ia phone to report test results * Images: Billing Information: * Visit Code: 63162 Office Visit, Est Pt., Level 4. * Procedure Codes: G2211 Complex e/m visit add on. G8950 PREHTN/HTN BP DOC INDCD F/U DOC. G8752 MOST RECENT SYSTOLIC BP < 140MM HG. G8755 MOST RECENT DIASTOLIC BP >= 90MM HG. * Electronic signature of Melissa Obrien MD on 11/17/2024 at 08:54 AM EDT Sign off status: Pending * Provider: Melissa Obrien M.D. Date: 0 10/27/2024 Generated for Deshauni iggy/Vamsig/eTransmitting on: 0 11/17/2024 08:54 AM EDT History and Physical Notes * HPI (History of Present Illness) Category Sub-Category Detail Notes Category Not es Dermatology rash On his right ank le for about 2 months. It started as a small area which has gotten larger. It is dry, scaly, and pruritic. He has tried using Neosporin, Vaseline, and metronidazole cream with no improvement. Examination Category Sub-Category Detail Notes Category Not es General Examination Extremities: There is sli ght weakness in dorsiflexion of the right ankle. Skin: On the right ankle, there is a 6 x 7 cm well-circumscribed macular area dry, scaly, and cracked skin. No excoriation or drainage. Back: There is marked decr ease in the normal lumbar lordosis with limited range of motion of the lumbar spine. He has difficulty standing erect.
--- OUTSIDE RECORDS SUMMARY | 2024-11-17 08:55 | XMS_ITS | Referral Summary ---
Author Organization [facility] Address [address] [place] [phone] Care Team Providers Care Recreational Sports Director Name Role Phone Unavailable Primary Care Provider Unavailabl e Social History Tobacco Use Types Packs/Day Years Used Date Smoking Tobacco: Never Assessed Sex and Gender Information Value Date Recorded Sex Assigned at Not on file Legal Sex Male 9:52 PM EST Gender Identity Not on file Sexual Orientation Not on file Last Filed Vital Signs Vital Sign Reading Time Taken Comments Blood Pressure 133/79 08/23/2009 8:02 AM EDT Pulse 61 08/23/2009 8:02 AM EDT Temperature 37.5 C (99.5 F) 06/18/2007 1:15 PM EDT Respiratory Rate - - Oxygen Saturation - - Inhaled Oxygen Concentration - - Weight 109.8 kg (242 lb) 08/23/2009 8:02 AM EDT Height 190.5 cm (6' 3 ) 08/23/2009 8:02 AM EDT Body Mass Index 30.25 08/23/2009 8:02 AM EDT Plan of Treatment Not on file
--- OUTSIDE RECORDS SUMMARY | 2024-11-17 08:55 | XMS_ITS | Clinical Summary ---
Author Organization [facility] Address [address] [place] [phone] Care Team Providers Care Research And Evaluation Analyst Name Role Phone Unavailable Primary Care Provider [...] 08/23/2009 8:02 AM EDT Plan of Treatment Health Maintenance Due Date Last Done Comments Hepatitis C Screening 1945 DTap,Tdap,and Td (1 - Tdap) 10/20/1958 Pneumococcal 50+ (1 of 1 - PCV) 10/20/1997 Shingrix (#1) 10/20/1997 Influenza Vaccine (#1) 2024 HPV Aged Out No longer eligi ble based on patient's age to complete this topic Meningococcal conjugate sarai nt 4 (MCV4) Aged Out No longer eligible b ased on patient's age to complete this topic
--- OUTSIDE RECORDS SUMMARY | 2024-11-17 08:55 | XMS_ITS | Patient Health Record ---
Author Organization [facility] Address [address] [facility] [address] [place] [phone] Care Team Providers Care Brain Picker Name Role Phone Melissa Obrien Primary Care Provider Allergies Allergen (clinical drug ingredient) Drug/Non Drug Allergy documented on EMR Reaction Allergy Type Onset Date Status Substance with sulfonamide structure and antibacterial mechanism of action (substance) Sulfa Antibiotics hives Drug Allergy Active Results Component Value Reference Range Notes P-Microalbumin/Creatinine, R andom Urine Sample Reviewed date:01/25/2024 09:41:33 AM Interpretation: Performing Lab: Notes/Report: Test performed by [facility] [address] [place], [place] [address] , [address], [place] [address] Nile Thornton MD, Financial Secretary CLIA: [id number] Albumin/Creatinine Ratio, Urine 5 0-30 ug/m g Microalbumin, Urine, Random 0.9 Creatinine, Urine 192.7 Glycohemoglobin A1c (in hous e) Reviewed date:01/25/2024 09:41:33 AM Interpretation:5.7% Performing Lab: Notes/Report: 5.7% glycohemoglobin 5.7% 5 - 6.5 % P-PSA Reviewed date:01/25/2024 09:41:33 AM Interpretation: Performing Lab: Notes/Report: Test performed by [facility] [address] [place], [place] [address] , [address], [place] [address] Nile Thornton MD, Financial Secretary CLIA: [id number] PSA 8.73 <4.00 ng/mL Please note this is an ultrasensitive PSA assay with a lower limit of detection of 0.014 ng/mL. This test is performed by the Jono ECLIA methodology. Values obtained with different assay methods or kits cannot be directly compared. P-Comprehensive Metabolic Pa tim (CMP) Reviewed date:01/25/2024 09:41:33 AM Interpretation: Performing Lab: Notes/Report: Test performed by [facility], [address] , [address], [place] [address] Nile Thornton MD, Financial Secretary CLIA: [id number] Sodium 139 135-145 mmol/L Potassium 4.9 3.5-5.3 [...] 0.6 <0.2-1.2 mg/dL A/G Ratio 1.4 1.1-2.5 Medications Medication SIG (Take, Route, Frequency, Duration) Notes Start Date End Date Status Silodosin 4 MG 1 capsule Orally Onc e a day 10/27/2024 Active Lisinopril-hydroCHLOROthi azide 20-25 MG 1 tablet Orally Once a day Active metroNIDAZOLE 0.75 % 1 application Externally Twice a day 01/21/2024 Active Aspirin 325 MG 1 tab(s) orally once a day Active Turmeric 500MG ONCE DAILY Acti ve FLUoxetine HCl 40 MG 1 capsule Orally On ce a day; Duration: 30 day(s) 01/21/2024 Not-Taking Betamethasone Dipropionate Aug 0.05 % 1 application Externally twice a day 10/27/2024 Active Immunizations Vaccine Route Administration Date Status Comme nts Prevnar (PCV20) IM Intramuscular 01/21/2024 Administered Prevnar (PCV13) IM Intramuscular 06/10/2016 Administered PNEUMOVAX 23 VACCINE IM Intramuscular 06/09/2017 Administe red Fluzone Quad-Medicare (6months&older) Unknown 02/14/2021 Administered Fluzone PF Quad (6-35 months) Unknown 12/03/2016 Administered Fluzone High Dose (65yr and older) Unknown 01/06/2015 Administered Fluzone High Dose (65yr and older) Unknown 12/03/2016 Administered Fluzone High Dose (65yr and older) Unknown 12/29/2019 Administered Fluzone High Dose (65yr and older) Unknown 12/29/2019 Administered Fluzone High Dose (65yr and older) IM Intramuscular 12/02/2022 Administered COVID 19 Moderna Unknown 04/25/2020 Administered COVID 19 Moderna Unknown 05/23/2020 Administered COVID 19 Moderna Unknown 01/09/2021 Administered Problems Problem Type SNOMED Code ICD Code Onset Dates Problem Status W/U Status Risk Notes Problem Hypertension (90949270) HTN (hypertension) (I10) Active confirmed Problem Osteoarthritis (809973718) Osteoarthritis (M19.90) Active confirmed Problem Benign prostatic hyperplasia (896113122) BPH (benign prostatic hyperplasia) (N40.0) Active confirmed Problem Peripheral neuropathy (499908230) Peripheral neuropathy (G62.9) Active confirmed Problem 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) BMI 35.0-35.9,adult (Z68.35) Active confirmed Problem Reactive depression (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) Situational depression (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) Active confirmed Problem Depression (769699683) Depression (F32.9) Active confirmed Problem Presbycusis (88550893) Presbycusis of both ears (H91.13) Active confirmed Problem Dyslipidemia (325405270) Dyslipidemia (E78.5) Active confirmed Problem Hydrocele of testis (57155459) 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) Active confirmed Problem Elevated PSA (902716955) Elevated PSA (R97.20) Active confirmed Problem Spinal stenosis of lumbar region (99418367) Spinal stenosis of lumbar region at multiple levels (M48.061) Active confirmed Vital Signs Heart Rate 96 /min 10/27/2024 Blood pressure diastolic 90 mm Hg 10/27/2024 Height 74 in 10/27/2024 Blood pressure systolic 130 mm Hg 10/27/2024 Weight 278 lbs 10/27/2024 BMI 35.69 kg/m2 10/27/2024 Encounters Encounter Location Date Provider Diagnosis [facility] [address] [place] [phone] 01/21/2024 R Kevin Martinfleet Adult general medica l examination Z00.00 ; HTN (hypertension) I10 ; Dyslipidemia E78.5 ; Depression F32.9 ; Elevated PSA R97.20 ; Low back pain, unspecified M54.50 ; BPH (benign prostatic hyperplasia) N40.0 ; Osteoarthritis M19.90 ; Presbycusis of both ears H91.13 and BMI 35.0-35.9,adult Z68.35 [facility] [address] [place] [id number] 10/27/2024 R Kevin Jacksoneet Eczema L30.9 ; HTN (hypertension) I10 ; BPH (benign prostatic hyperplasia) N40.0 ; Spinal stenosis of lumbar region at multiple levels M48.061 ; Leg weakness, bilateral M62.81 ; Dyslipidemia E78.5 ; Lumbar back pain M54.50 and BMI 35.0-35.9,adult Z68.35 [facility] [address] [place] [id number] 01/25/2024 R Kevin Sanchezt [facility] [address] [facility] [address] [place] [phone] 07/15/2024 R Kevin Obrien [facility] [address] [place] [phone] 09/19/2024 R Kevin Jacksoneet Assessments Encounter Date Diagnosis (ICD Code) Assessment Notes Treatment Notes Treatment Clinical Notes Section Notes 01/21/2024 HTN (hypertension) (ICD-10 - I10) 01/21/2024 Adult general medical examination (ICD-10 - Z00.00) Patient instructed to return to office Annually for Annual Wellness Visits to include annual screenings of Pain assessment, Functional Ability assessment, Cognitive Ability assessment, Fall Risk assessment, Depression screening and Bladder control screening. 10/27/2024 HTN (hypertension) (ICD-10 - I10) 10/27/2024 Eczema (ICD-10 - L30.9) 10/27/2024 BPH (benign prostatic hyperplasia) (ICD-10 - N40.0) 01/21/2024 Dyslipidemia (ICD-10 - E78.5) Reinforced diet. Recheck labs. 10/27/2024 Spinal stenosis of lumbar region at multiple levels (ICD-10 - M48.061) 01/21/2024 Depression (ICD-10 - F32.9) 01/21/2024 Elevated PSA (ICD-10 - R97.20) 10/27/2024 Leg weakness, bilateral (ICD-10 - M62.81) 10/27/2024 Dyslipidemia (ICD-10 - E78.5) 01/21/2024 Low back pain, unspecified (ICD-10 - [...] loss, and regular stretching routine at home. 10/27/2024 Lumbar back pain (ICD-10 - M54.50) 01/21/2024 BPH (benign prostatic hyperplasia) (ICD-10 - N40.0) 01/21/2024 Osteoarthritis (ICD-10 - M19.90) 10/27/2024 BMI 35.0-35.9,adult (ICD-10 - Z68.35) 01/21/2024 Presbycusis of both ears (ICD-10 - H91.13) 01/21/2024 BMI 35.0-35.9,adult (ICD-10 - Z68.35) Plan Of Treatment Pending Test Test Name Order Date MRI : Spine, Lumbosacral, without contra st 10/27/2024 colonoscopy 12/02/2022 Insurance Providers Payer Name Payer Address Payer Phone Subscriber Number Group Number Insured Name Patient Relationship to Insured Coverage Start Date Coverage End Date [employer] (MEDICAR E) [address] [address] [place] [phone] [id number] PEACE RUSSELL Self - patient is the insured Medical (General) History Medical History History ICD Code Hypertension Enlarged Prostate Elevated PSA with benign biopsy Presbycusis - wears hearing aids HLP OA Peripheral neuropathy Hydrocele Surgical History Surgery Date(Month/Year) LT Inguinal Hernia Repair 2008 Tonsillectomy Colonoscopy, 2017 normal Prostate biopsy - benign x 2/ [place] LT Cataract Removal 04/2019 Hospitalization History Reason Date(Month/Year)
--- NOTE | 2024-11-17 09:00 | MR_ITS ---
FINAL REPORT CLINICAL HISTORY: SPINAL STEN,BILATERAL MUSCLE WEAKNESS LUMBOSACRAL FINDINGS: Multiplanar MR imaging of the lumbar spine was performed without contrast. On the sagittal T2-weighted images, there is abnormal decreased signal throughout the lumbar discs. The vertebrae are of normal height. The vertebral alignment is normal. L1-2: Mild diffuse disc bulge. Mild right paracentral disc protrusion with mild compromise of the right lateral recess. L2-3: Mild diffuse disc bulge with endplate hypertrophy. Mild to moderate bilateral neuroforaminal narrowing. L3-4: Moderate diffuse disc bulge with asymmetric left facet hypertrophy. High-grade left neuroforaminal narrowing. L4-5: Moderate diffuse disc bulge with endplate hypertrophy and bilateral facet hypertrophy. Moderate spinal and moderate to high-grade bilateral neuroforaminal narrowing. L5-S1: Mild diffuse disc bulge with mild to moderate bilateral neuroforaminal narrowing. IMPRESSION: Multilevel degenerative disc disease with neuroforaminal compromise, most evident on the left at L3-4 and bilaterally at L4-5. Reviewed, Interpreted and Dictated by Elkin Correa MD Transcribed by Darline Turner Authenticated and [facility]
== END 2024-11-17 23:59 | disposition home or self-care (01) ==
LOC: RAD 08:52
PROVIDERS: PCP Family Medicine; Visit Provider Family Medicine
DX: M51.369 Other intervertebral disc degeneration, lumbar region without mention of lumbar back pain or lower extremity pain (principal); M48.061 Spinal stenosis, lumbar region without neurogenic claudication; M99.73 Connective tissue and disc stenosis of intervertebral foramina of lumbar region; M62.81 Muscle weakness (generalized)
CPT/HCPCS: 72148